=== PATIENT | female | born 1975 | race African-American/Black ===

== ENCOUNTER 2018-05-19 19:56 | Emergency (ER) | payer BC ==
[~2018-05-19] VITALS: Wt 110.0 kg
--- NOTE | 2018-05-19 23:05 | ERD ---
ER Documentation Chief Complaint Chief Complaint SI X'S 1 WEEK HPI 42-year-old female who has a history of suicidal ideation and plan. She states that she is here for medical clearance prior to voluntary admission to [facility]. She describes several days of suicidal thoughts with a plan to overdose on medication. No fevers chills chest pain or shortness of breath. No other complaints. ROS All systems reviewed and are negative except as per history of present illness. PMhx/Soc Medical and Surgical Hx: pt denies Surgical Hx FmHx Family History: diabetes Physical Exam Vitals Vital Signs Date Temp Pulse Resp B/P (MAP) Pulse Ox O2 O2 Flow FiO2 Time Delivery Rate 05/19/18 97.6 94 18 143/85 98 20:04 (104) Physical Exam General: Well developed, well nourished, no acute distress Head: Normocephalic, atraumatic. Eyes: Pupils equally reactive, EOM intact ENT: Moist mucous membranes Neck: Supple, no lymphadenopathy Respiratory: Lungs clear bilaterally, no distress Cardiovascular: RRR, no murmurs, rubs, or gallops Abdominal: Soft, non-tender, non-distended, no peritoneal signs : Deferred MSK: No edema, no unilateral swelling, 5/5 strength Neurologic: Alert and oriented, moving all extremities, normal speech, no focal weakness, no cerebellar signs Skin: No rash Psych: SI with plan Result Diagram: 05/19/18220905/19/18 221 Results 24 hrs Laboratory Tests Test 05/19/18 22:10 White Blood Count 10.7 10^3/ul Red Blood Count 4.35 10^6/ul Hemoglobin 12.1 g/dl Hematocrit 38.4 % Mean Corpuscular Volume 88.3 fl Mean Corpuscular Hemoglobin 27.8 pg Mean Corpuscular Hemoglobin Concent 31.5 g/dl Red Cell Distribution Width 14.5 % Platelet Count 218 10^3/UL Mean Platelet Volume 10.6 fl Immature Granulocytes % 0.300 % Neutrophils % 63.7 % Lymphocytes % 26.5 % Monocytes % 7.7 % Eosinophils % 1.3 % Basophils % 0.5 % Nucleated Red Blood Cells % 0.0 /100WBC Immature Granulocytes # 0.030 10^3/ul Neutrophils # 6.8 10^3/ul Lymphocytes # 2.8 10^3/ul Monocytes # 0.8 10^3/ul Eosinophils # 0.1 10^3/ul Basophils # 0.1 10^3/ul Nucleated Red Blood Cells # 0.0 10^3/ul Sodium Level 141 mmol/L Potassium Level 3.9 mmol/L Chloride Level 105 mmol/L Carbon Dioxide Level 27 mmol/L Anion Gap 9 Blood Urea Nitrogen 19 mg/dl Creatinine 0.81 mg/dl Est Glomerular Filtrat Rate mL/min > 60 mL/min Glucose Level 284 mg/dl Calcium Level 9.9 mg/dl Total Bilirubin 0.0 mg/dl Direct Bilirubin 0.00 mg/dl Indirect Bilirubin 0.0 mg/dl Aspartate Amino Transf (AST/SGOT) 17 IU/L Alanine Aminotransferase (ALT/SGPT) 15 IU/L Alkaline Phosphatase 124 IU/L Total Protein 7.3 g/dl Albumin 4.3 g/dl Globulin 3.00 g/dl Albumin/Globulin Ratio 1.43 Urine Opiates Screen Negative Urine Barbiturates Negative Urine Amphetamines Screen Negative Urine Benzodiazepines Screen Negative Urine Cocaine Screen Positive Urine Cannabinoids Negative Ethyl Alcohol Level < 10.0 mg/dl Procedures/MDM EKG/DIAGNOSTIC IMAGING: [None Required] LAB INTERPRETATION: [No acute process] MEDICAL DECISION MAKING: The patient's presentation is consistent with underlying psychiatric illness and likely exacerbation of this illness and/or psychosis. I have a much lower clinical concern for delirium or acute organic pathology such as toxicologic, metabolic, ischemic, intracranial hemorrhage, infectious process. However, we must rule this out prior to relying a diagnosis of underlying psychiatric illness. The patient's workup will include medical screening examination and appropriate laboratory testing. If the patient's medical examination does not reveal acute organic pathology the patient will be medically cleared for psychiatric evaluation. ER COURSE: The patient's evaluation does not suggest an acute organic pathology. At this time I believe the patient's presentation is very consistent with underlying psychiatric illness. The patient is medically cleared for psychiatric evaluation. CONSULTATION: Psychiatric consultation: Telemetry medicine psychiatry has been consulted on this case to evaluate the patient for possible acute psychiatric illness that would require inpatient hospitalization. However, the patient is agreeable to voluntary admission. I will recheck to [facility] to see if they have available beds. Pending acceptance. DISPOSITION PLAN: Pending accepting facility Departure Diagnosis: Primary Impression: Suicidal ideation Condition: BECCA Tate MD May 19, 2018 23:05
[2018-05-20] MEDS ORDERED: INSULIN LISPRO 100 UNIT/ML VIAL SC ONE ×3 (06:30→10:00)
[2018-05-20] MEDS ORDERED: OLANZAPINE (ODT) 5 MG TAB ODT ONE (11:30)
[2018-05-20] MEDS ORDERED: LORAZEPAM 1 MG TAB PO ONE (12:00)
[2018-05-20 12:27] VITALS: RESP 17
[2018-05-20] MEDS ORDERED: OXYC-279 PO (13:55)
[2018-05-20 16:49] VITALS: BP 110/56; PULSE 76
== END 2018-05-20 16:53 ==
LOC: E/R 19:56
DX: R45.851 Suicidal ideations (principal)
CPT/HCPCS: 36415; 80053; 80307; 82962; 84703; 85025; 96372; 99285; J1815; Z7610